=== PATIENT | male | born 2000 | race Caucasian/White ===

== ENCOUNTER 2020-02-14 07:56 | Outpatient (CLI) | payer OTHER ==
[2020-02-14 14:30] LABS: Hemoglobin 15.6 g/dL (14.0-18.0); Mean Corpuscular HGB CONC 33.5 g/dL (32.0-36.0); Mean Corpuscular Hemoglobin 29.7 pg (25.0-35.0); Mean Corpuscular Volume 88.6 fL (78.0-98.0); Mean Platelet Volume 8.7 fL (7.4-10.4); Platelet Count 203 thou/uL (130-400); Red Blood Cell (RBC) Count 5.24 mill/uL (4.00-5.20); White Blood Cell (WBC) Count 6.9 thou/uL (4.8-10.8)
[2020-02-14 14:31] LABS: PTT 29.7 sec (22.9-36.1); Prothrombin Time 13.7 sec (12.0-14.7)
[2020-02-14 14:57] LABS: Anion Gap 15 mmol/L (10-20); BUN (Urea Nitrogen) 10 mg/dL (8.9-20.6); Calc. Creatinine Clearance 0 mL/min (70-130); Calcium 9.6 mg/dL (7.8-10.44); Carbon Dioxide 24 mmol/L (22-29); Chloride 106 mmol/L (98-107); Estimated GFR-MDRD Greater than 90; Glucose 100 mg/dL (70-105); Potassium 4.3 mmol/L (3.5-5.1); Sodium 141 mmol/L (136-145)
[2020-02-16 12:12] LABS: SARS-CoV-2 MS2 Positive; SARS-CoV-2 N Gene Positive; SARS-CoV-2 S Gene Negative; SARS-CoV-2 by NAA DETECTED (NotDetected); SARS-CoV-2 orf1ab Positive
== END 2020-02-14 07:57 | disposition home or self-care (01) ==
LOC: LABBT 07:56
PROVIDERS: ATTEND Urology
DX: U07.1 COVID-19 (principal); Z01.812 Encounter for preprocedural laboratory examination; N20.0 Calculus of kidney
CPT/HCPCS: 80048; 85027; 85610; 85730; 87635; U0003

== ENCOUNTER 2020-02-17 08:36 | Day surgery (SDC) | payer OTHER ==
[2020-02-15 12:32] VITALS: BMI 23.6
[2020-02-17] MEDS ORDERED: Levofloxacin 500 mg/D5W 100 ml Premix Bag ONE (08:53)
[2020-02-17] MEDS ORDERED: Succinylcholine Chloride 20 MG/ML 10 ml SYRINGE FS ONE (09:35)
[2020-02-17] MEDS ORDERED: PROPOFOL 200 MG/20 ML VIAL ONE (09:35)
[2020-02-17] MEDS ORDERED: Ondansetron PF 4 MG/2 ML Vial ONE (09:35)
[2020-02-17] MEDS ORDERED: Iothalamate Meglumine 60% 50 ML VIAL FS ONE (09:48)
[2020-02-17] MEDS ORDERED: Midazolam HCl 2 mg/2 ml Vial ONE (09:59)
[2020-02-17] MEDS ORDERED: Fentanyl 100 MCG/2 ML VIAL ONE (10:04)
[2020-02-17] MEDS ORDERED: Oxybutynin 5 MG TAB ONE (11:11)
[2020-02-17] MEDS ORDERED: Phenazopyridine HCl 100 MG TAB ONE (11:11)
[2020-02-17] MEDS ORDERED: Meperidine HCl/PF 25 MG/ML VIAL ONE (11:19)
[2020-02-17] MEDS ORDERED: Ketorolac Tromethamine 30 MG/ML VIAL ONE (12:12)
--- NOTE | 2020-02-17 13:52 | RAD ---
KUB: 02/17/20 HISTORY: Left renal stone, stent. This is a single C-arm view which shows proximal end of the left ureteral stent within the left renal pelvis region. IMPRESSION: Placement of a let ureteral stent. POS: [facility]ERT
--- NOTE | 2020-02-17 17:03 | OP ---
DATE OF PROCEDURE: 02/17/2020 PREOPERATIVE DIAGNOSIS: Left ureteral stone. POSTOPERATIVE DIAGNOSIS: Left ureteral stone. PROCEDURES PERFORMED: Left ureteroscopy with laser basket extraction, retrograde pyelogram, intraoperative interpretation of radiologic imaging, and 4.8 x 26 double-J ureteral stent placement. ANESTHESIA: General. COMPLICATIONS: None. ESTIMATED BLOOD LOSS: None. SPECIMEN: Left ureteral stone fragments. DESCRIPTION OF PROCEDURE: After informed consent, the patient was taken to the operating room, transferred to the table under his own power. Anesthesia was established. A time-out was performed, showing the correct patient, site, and procedure. Preoperative antibiotics were administered. He was prepped and draped in the lithotomy position. The semi-rigid ureteroscope was advanced through the urethra noting a normal course and caliber of the urethra and the left ureteral orifice was cannulated with a wire, which was passed up to the level of the renal pelvis under fluoroscopic guidance. The scope was withdrawn and reinserted alongside the wire into the distal ureter, where a retrograde pyelogram was performed showing a transition point just over the iliac vessels with hydroureter and hydronephrosis beyond. The scope was then passed up to that point, where the stone was encountered. 365 micron laser fiber was used to fragment the stone into several small pieces. The 1.9 cm Nitinol basket was used to remove these pieces, which were passed off the specimen. The scope was then passed all the way up to the proximal ureter noting no further stone fragments or abnormalities. The scope was then withdrawn and a 4.8 x 26 double-J ureteral stent was positioned over the wire with a curl in the kidney and curl in the bladder under fluoroscopic guidance. Strings were left attached for the patient to remove in 3 days. He was then awoken from anesthesia, transferred back to his hospital bed, and taken to PACU in stable condition, where he was discharged home upon recovery. Job ID: [id number]
== END 2020-02-17 13:30 | disposition home or self-care (01) ==
LOC: CANPRESDC → SDC 08:36
PROVIDERS: ATTEND Urology
PROC: 0TC78ZZ Extirpation of Matter from Left Ureter, Via Natural or Artificial Opening Endoscopic (ICD-10-PCS; principal; 2020-02-17)
DX: U07.1 COVID-19 (principal); N13.2 Hydronephrosis with renal and ureteral calculous obstruction; Z87.891 Personal history of nicotine dependence
CPT/HCPCS: 74018; 76000; 82365; 88300; J1885; J1956; J2175; J2250; J2405; J2704; J3010